=== PATIENT | female | born 1985 | race African-American/Black ===

== ENCOUNTER 2016-04-24 11:37 | Emergency (ER) | payer MEDICAID | END 2016-04-24 15:52 | disposition home or self-care (01) | LOC: ER 11:37 | CPT/HCPCS: 36415; 76817; 80053; 81003; 83690; 84702; 84703; 85025; 87491; 87591; 87800 ==

== ENCOUNTER 2016-05-01 17:46 | Emergency (ER) | payer MEDICAID ==
[2016-05-01] MEDS ORDERED: DILAUDID 1 MG/ML AMP ONE (20:42)
== END 2016-05-01 21:23 | disposition home or self-care (01) ==
LOC: ER 17:46
DX: O20.0 Threatened abortion (principal); Z3A.01 Less than 8 weeks gestation of pregnancy
CPT/HCPCS: 36415; 76817; 80048; 84702; 84703; 85025; 86901; 96372

== ENCOUNTER 2016-05-16 20:41 | Emergency (ER) | payer MEDICAID ==
[2016-05-16] MEDS ORDERED: SODIUM CHLORIDE 0.9% 1,000 ML ONE ×2 (21:14→21:34)
== END 2016-05-17 00:06 | disposition home or self-care (01) ==
LOC: ER 20:41
DX: O21.9 Vomiting of pregnancy, unspecified (principal); R55 Syncope and collapse; Z3A.00 Weeks of gestation of pregnancy not specified
CPT/HCPCS: 36415; 80053; 82947; 85025; 87804; 87880; 93005; 96360; 96361